=== PATIENT | female | born 2000 | race African-American/Black ===

== ENCOUNTER → 2022-07-23 | Emergency (ER) | payer MEDICAID ==
[~2022-07-23] VITALS: Ht 162.6 cm; Wt 99.0 kg
[~2022-07-23] MED LIST: CEPH-510 PO; CEPHALEXIN 250 MG CAP PO ONE; LACTATED RINGER'S 1,000 ML IV ONE; ONDA-144 PO; ONDANSETRON HCL 4 MG/2 ML VIAL IV ONE
[2022-07-23 19:28] LABS: Basophils # (auto) 0 10 ^3/uL (0-0.2); Basophils % (auto) 0.6 % (0.0-2.0); Eosinophils # (auto) 0.1 10 ^3/uL (0-0.8); Eosinophils % (auto) 1.5 % (0.0-7.0); Hematocrit 47.3 % (36.0-46.0); Hemoglobin 15.7 g/dL (12.2-16.2); Lymphocytes # (auto) 1.9 10 ^3/uL (0.4-5.4); Lymphocytes % (auto) 23.4 % (10.0-50.0); Mean Corpuscular Hemoglobin 28.9 pg (28.0-32.0); Mean Corpuscular Hgb Conc. 33.2 g/dL (32.0-36.0); Mean Corpuscular Volume 86.9 fL (80.0-100.0); Monocytes # (auto) 0.6 10 ^3/uL (0-1.3); Neutrophils # (auto) 5.3 10 ^3/uL (1.6-8.6); Neutrophils % (auto) 66.5 % (37.0-80.0); Nucleated Red Blood Cells % 0.3 %; Red Blood Cells 5.44 10^6/uL (4.0-5.20); Red Cell Distribution Width 13.5 % (11.8-14.3)
[2022-07-23 19:46] LABS: Albumin 3.9 g/dL (3.4-5.0); BUN/Creatinine Ratio 11.3; Calcium 9.4 mg/dL (8.5-10.1); Potassium 3.8 mmol/L (3.5-5.1)
[2022-07-23 19:48] LABS: Bilirubin, Total 0.8 mg/dL (0.2-1.0); Total Protein 7.7 g/dL (6.4-8.2)
[2022-07-23 20:55] LABS: Urine Bacteria FEW /hpf (None Seen); Urine Blood Negative /uL (Negative); Urine Specific Gravity 1.014 (1.001-1.035); Urine WBC 7 /hpf (0 - 5)
[2022-07-23 21:06] LABS: Alcohol, Urine < 3.0 mg/dL (0-10); Barbiturate Scree,Urine NEGATIVE (NEGATIVE); Benzodiazephine Screen, Urine NEGATIVE (NEGATIVE); Cannabinoid Screen, Urine NEGATIVE (NEGATIVE); Cocaine Screen, Urine NEGATIVE (NEGATIVE); Opiate Scree,Urine NEGATIVE (NEGATIVE); Phencyclidine Screen, Urine NEGATIVE (NEGATIVE)
[2022-07-23 21:18] LABS: Amphetamine Screen, Urine NEGATIVE (NEGATIVE)
[2022-07-24 01:33] VITALS: BP 118/82
== END | disposition home or self-care (01) ==
LOC: ER 18:38
DX: O21.0 Mild hyperemesis gravidarum (principal); O23.41 Unspecified infection of urinary tract in pregnancy, first trimester; N39.0 Urinary tract infection, site not specified; Z3A.01 Less than 8 weeks gestation of pregnancy; Z03.89 Encounter for observation for other suspected diseases and conditions ruled out
CPT/HCPCS: 36415; 80053; 80307; 81001; 84702; 85025; 96361; 96374; 99283; J2405

== ENCOUNTER 2022-10-31 13:16 | Observation (INO) | payer MEDICAID ==
[~2022-10-31 13:16] MED LIST changes: -CEPHALEXIN 250 MG CAP PO ONE; -LACTATED RINGER'S 1,000 ML IV ONE; -ONDANSETRON HCL 4 MG/2 ML VIAL IV ONE
[2022-10-31] MEDS ORDERED: PREN-96 PO (13:49)
[2022-10-31] MEDS ORDERED: NITR-87 PO (14:11)
[2022-10-31 14:16] LABS: Urine Bacteria FEW /hpf (None Seen); Urine Blood Negative /uL (Negative); Urine Mucus MANY (None Seen); Urine Specific Gravity 1.033 (1.001-1.035); Urine WBC 15 /hpf (0 - 5)
== END 2022-10-31 14:34 | disposition home or self-care (01) ==
LOC: LDRP 13:16
PROVIDERS: ADMIT Obstetrics & Gynecology; ATTEND Obstetrics & Gynecology
DX: O26.892 Other specified pregnancy related conditions, second trimester (principal); R10.9 Unspecified abdominal pain; Z3A.20 20 weeks gestation of pregnancy; Z88.0 Allergy status to penicillin; Z87.891 Personal history of nicotine dependence
CPT/HCPCS: 59025; 76815; 81001; 81002; 94760; G0378

== ENCOUNTER 2023-04-18 18:04 | Emergency (ER) | payer MEDICAID ==
[~2023-04-18] VITALS: Ht 162.6 cm; Wt 88.2 kg
[~2023-04-18 18:04] MED LIST changes: +NITR-87 PO; +PREN-96 PO
[2023-04-18 21:22] LABS: Urine Bacteria NONE SEEN /hpf (None Seen); Urine Blood 3+ /uL (Negative); Urine Clarity Clear (Clear); Urine Color Yellow (Yellow); Urine Protein, UAD Negative (Negative); Urine Specific Gravity 1.019 (1.001-1.035); Urine Urobilinogen Normal (Negative); Urine WBC 3 /hpf (0 - 5); Urine pH 6.5 (5.0-8.0)
[2023-04-18] MEDS ORDERED: KETOROLAC TROMETH 30 MG/ML 1ML VIAL IM ONE (22:15)
[2023-04-18] MEDS ORDERED: KETOROLAC TROMETH 60MG/2ML VIAL IM ONE (22:45)
[2023-04-18 23:10] VITALS: BP 119/72; PULSE 86; RESP 20; TEMP 98.3; O2SAT 99
== END 2023-04-18 23:15 | disposition home or self-care (01) ==
LOC: ER 18:06
DX: G43.909 Migraine, unspecified, not intractable, without status migrainosus (principal); Z32.02 Encounter for pregnancy test, result negative
CPT/HCPCS: 81001; 81025; 96372; 99283; J1885

== ENCOUNTER 2024-07-07 15:49 | Emergency (ER) | payer MEDICAID ==
[~2024-07-07] VITALS: Ht 162.6 cm; Wt 83.0 kg
[2024-07-07 16:01] VITALS: BP 117/79; PULSE 89; RESP 20; O2SAT 100
--- NOTE | 2024-07-07 16:08 | ED.PDOC ---
GI ASSESSMENT HPI Comments 23 year old female presents to the ED with chief complaint of N/V during . Patient reports that she has been experiencing diffuse abdominal pain with associated nausea and vomiting for the past 2 weeks. Patient relays that her LMP was the week before Thanksgiving and she is A4, believing she is 6 weeks . Patient states that she has felt sick all other times she was where she needed to come to the ED. Patient denies any diarrhea, fever, chills, chest pain, dizziness, or headache. Time Seen by MD: 15:53 Primary Care Provider: NONE Reviewed Notes: Nurses Notes, Medications, Allergies Allergies: Coded Allergies: NO KNOWN ALLERGIES (Unverified , 09/07/13) Home Meds Active Scripts Ondansetron (Zofran) 4 Mg Tab, 4 MG PO TIDP PRN for 7 Days, #20 MG Prov:DANIEL KNIGHT S DO 07/24/22 Cephalexin ( Keflex 500) 500 Mg Cap, 1 CAP PO TID for 7 Days, #30 CAP Prov:DANIEL KNIGHT DO 07/24/22 Reported Medications Nitrofurantoin Monohydrate Mac (Macrobid) 100 Mg Cap, 100 MG PO BID for 7 Days, CAP 10/31/22 Vit W/ Ferrous Fumara ( One Daily) Daily Tab, 1 TAB PO DAILY, #30 TAB 11 Refills 10/31/22 Information Source: Patient Mode of Arrival: Ambulatory Timing: Days Duration: Since onset Prehospital treatment: None Quality: None Vomitus: Watery Stool: Normal Severity: Moderate Recent: None Recent Hx of: None Pain Location: Diffuse Modifying Factors: Nothing Associated sign and symptoms: Nausea, Vomiting, Abdominal Pain Past Medical History PAST MEDICAL HISTORY: Denies Surgical History: Denies all surgeries CHILD DEVELOPMENT PROFESSOR History: No Pertinent CHILD DEVELOPMENT PROFESSOR History 6 Para 1 AB 4 LMP 06/03 Family History Family History: Unknown Social History Smoker: Non-Smoker Alcohol: Denies ETOH Use Drugs: Denies Drug Use Lives In: Home Constitutional: denies: chills, diaphoresis, fatigue, fever, malaise, sweats, weakness, others EENTM: denies: blurred vision, double vision, ear bleeding, ear discharge, ear drainage, ear pain, ear ringing, eye pain, eye redness, hearing loss, mouth pain, mouth swelling, nasal discharge, nose bleeding, nose congestion, nose pain, photophobia, tearing, throat pain, throat swelling, voice changes, others Respiratory: denies: cough, hemoptysis, orthopnea, SOB at rest, shortness of breath, SOB with excertion, stridor, wheezing, others Cardiovascular: denies: chest pain, dizzy spells, diaphoresis, Dyspnea on exertion, edema, irregular heart beat, left arm pain, lightheadedness, palpitations, PND, syncope, others Gastrointestinal: reports: abdominal pain, nausea, vomiting; denies: abdomen distended, blood streaked bowels, constipated, diarrhea, dysphagia, difficulty swallowing, hematemesis, melena, poor appetite, poor fluid intake, rectal bleeding, rectal pain, others Genitourinary: reports: ; denies: abnormal vagina bleeding, burning, dyspareunia, dysuria, flank pain, frequency, hematuria, incontinence, pain, vagina discharge, urgency, others Neurological: denies: dizziness, fainting, headache, left sided numbness, left sided weakness, numbness, paresthesia, pre-existing deficit, right sided numbness, right sided weakness, seizure, speech problems, tingling, tremors, weakness, others Musculoskeletal: denies: back pain, gout, joint pain, joint swelling, muscle pain, muscle stiffness, neck pain, others Integumetry: denies: bruises, change in color, change in hair/nails, dryness, laceration, lesions, lumps, rash, wounds, others Allergic/Immunocompromised: denies: Difficulty Healing, Frequent Infections, Hives, Itching, others Hematologic/Lymphatic: denies: anemia, blood clots, easy bleeding, easy bruising, swollen glands, others Endocrine: denies: excessive hunger, excessive sweating, excessive thirst, excessive urination, flushing, intolerance to cold, intolerance to heat, unexplained weight gain, unexplained weight loss, others Psychiatric: denies: anxiety, bipolar disorder, depression, hopeless, panic disorder, schizophrenia, sleepless, suicidal, others All Other Systems: Reviewed and Negative Physical Exam General Appearance: No Apparent Distress, Normal HEENT: Normal ENT Inspection, PERRL/EOMI Neck: Full Range of Motion, Non-Tender, Normal, Normal Inspection Respiratory: Chest Non-Tender, Lungs Clear, No Accessory Muscle Use, No Respiratory Distress, Normal Breath Sounds Cardiovascular: No Edema, No JVD, No Murmur, No Gallop, Normal Peripheral Pulses, Regular Rate/Rhythm Breast Exam: Deferred Gastrointestinal: No Organomegaly, Non Tender, No Pulsatile Mass, Normal Bowel Sounds, Soft Genitalia: Deferred Pelvic: Deferred Rectal: Deferred Extremities: No calf tenderness, Normal capillary refill, Normal inspection, Normal range of motion, Non-tender, No pedal edema Musculoskeletal : Apperance: Normal Neurologic: Alert, manager target II-XII nml as Tested, No Motor Deficits, Normal Affect, Normal Mood, No Sensory Deficits Cerebellar Function: Normal Reflexes: Normal Skin: Dry, Normal Color, Warm Lymphatic: No Adenopathy Was a procedure done? Was a procedure done?: No GI differential Dx Differential Diagnosis: Appendicitis, Complete , Incomplete , Inevitable , Missed , Threatened , Abruptio placentae, Constipation, Ectopic , Gastritis/PUD, Gastroenteritis, UTI, Dehydration, Diabetes/ DKA, Electrolyte Imbalance, Food Poisoning, , Bacterial, Parasitic, Viral, Hypovolemia, Impaction, Other (HYPEREMESIS GRAVIDARUM) X-Ray, Labs, Meds, VS Vital Signs Date Time Temp Pulse Resp B/P (MAP) Pulse Ox O2 Delivery O2 Flow Rate FiO2 07/07/24 16:01 97.0 89 20 117/79 (92) 100 Time of 1ST Reevaluation: 16:53 Reevaluation 1ST: Unchanged Time of 2ND Reevaluation: 18:00 Reevaluation 2ND: ELOPED Patient Education/Counseling: Diagnosis, Treatment Family Education/Counseling: No Family Present Additional Information - I reviewed the following notes from patient's past medical encounters: 04/18/23 for Migraines - The following tests were ordered, and results were reviewed by me: - I reviewed and agreed with the following test results read by other provider: (X-ray, CT, US)- PT ELOPED BEFORE ANY TESTS ARE DONE - I discussed treatments and results with medical personnel. Departure 1 Departure Time of Disposition: 19:02 Impression: Primary Impression: Nausea & vomiting Additional Impression: Disposition: LEFT AWOL/ELOPED Condition: Other (UNKNOWN) Critical Care Note Critical Care Time?: No Stability Stability form required: No Heart Score Heart Score: Heart Score Response (Comments) Value History N/A 0 EKG N/A 0 Age N/A 0 Risk Factors N/A 0 Troponin N/A 0 Total 0 I personally scribed for ALEXANDRA PITTMAN MD ([email or web address]) on 07/07/24 at 16:08. Electronically submitted by Aniket Mayfield ([email or web address]). ALEXANDRA PITTMAN MD Jul 07, 2024 16:08
[2024-07-07] MEDS ORDERED: ONDANSETRON ODT 4 MG TAB PO ONE (16:15)
== END 2024-07-07 19:00 | disposition left against medical advice (07) ==
LOC: ER 15:49
DX: O21.9 Vomiting of pregnancy, unspecified (principal); Z79.899 Other long term (current) drug therapy; Z3A.01 Less than 8 weeks gestation of pregnancy